=== PATIENT | female | born 1995 | race Caucasian/White ===

== ENCOUNTER 2017-05-24 11:41 | Emergency (ER) | payer OTHER ==
[~2017-05-24] VITALS: Ht 149.9 cm; Wt 52.3 kg
[2017-05-24] MEDS ORDERED: IBUPROFEN 800 MG TABLET PO ONE (12:15)
[2017-05-24] MEDS ORDERED: DEXAMETHASONE SOD PHOS 4 MG/ML 5 ML VIAL IM ONE (12:15)
[2017-05-24] MEDS ORDERED: PENICILLIN G BENZATHINE LA 1,200,000 UNITS/2 ML SYRINGE IM ONE (13:15)
[2017-05-24 14:23] VITALS: BP 105/60
== END 2017-05-24 14:29 | disposition home or self-care (01) ==
LOC: EMS 11:42
DX: J02.8 Acute pharyngitis due to other specified organisms (principal); B96.89 Other specified bacterial agents as the cause of diseases classified elsewhere
CPT/HCPCS: 87430; 96372; 99284; J0561; J1100

== ENCOUNTER 2018-12-05 19:15 | Emergency (ER) | payer OTHER ==
[~2018-12-05] VITALS: Ht 152.4 cm; Wt 52.3 kg
[2018-12-05] MEDS ORDERED: IBUPROFEN 800 MG TABLET PO ONE (21:00)
[2018-12-05 21:23] LABS: INFLUENZA TYPE A POSITIVE FOR TYPE A (NEGATIVE); INFLUENZA TYPE B NEGATIVE FOR TYPE B (NEGATIVE)
[2018-12-05 21:28] VITALS: BP 84/50
== END 2018-12-05 21:43 | disposition home or self-care (01) ==
LOC: EMS 19:16
DX: J11.1 Influenza due to unidentified influenza virus with other respiratory manifestations (principal); M79.10 Myalgia, unspecified site
CPT/HCPCS: 87804

== ENCOUNTER 2019-12-04 02:34 | Emergency (ER) | payer OTHER ==
[~2019-12-04] VITALS: Ht 152.4 cm; Wt 52.3 kg
[2019-12-04 03:15] VITALS: BP 126/71
== END 2019-12-04 04:19 | disposition home or self-care (01) ==
LOC: EMS 02:34
DX: J06.9 Acute upper respiratory infection, unspecified (principal)

== ENCOUNTER 2020-08-06 13:39 | Emergency (ER) | payer OTHER ==
[~2020-08-06] VITALS: Ht 152.4 cm; Wt 53.2 kg
[2020-08-06] MEDS ORDERED: IBUP200C5 PO (13:51)
[2020-08-06] MEDS ORDERED: SODIUM CHLORIDE 0.9% 1,000 ML IV ONE (15:45)
[2020-08-06] MEDS ORDERED: DiphenhydrAMINE HCL 50 MG/ML VIAL IVP ONE (15:45)
[2020-08-06] MEDS ORDERED: KETOROLAC TROMETHAMINE 30 MG/ML VIAL IVP ONE (17:15)
[2020-08-06] MEDS ORDERED: METOCLOPRAMIDE HCL 5 MG/ML 2 ML VIAL IVP ONE (17:15)
[2020-08-06 18:48] VITALS: BP 125/76
== END 2020-08-06 18:54 | disposition home or self-care (01) ==
LOC: EMS 14:08
DX: R51.9 Headache, unspecified (principal); H53.149 Visual discomfort, unspecified; Z79.899 Other long term (current) drug therapy
CPT/HCPCS: 36415; 84702; 96361; 96374; 96375; 99284; J1200; J1885; J2765; J7030

== ENCOUNTER 2021-04-27 12:47 | Emergency (ER) | payer OTHER ==
[~2021-04-27] VITALS: Ht 152.4 cm; Wt 52.3 kg
[~2021-04-27 12:47] MED LIST: IBUP200C5 PO
[2021-04-27 13:03] VITALS: BP 99/55
== END 2021-04-27 14:35 | disposition home or self-care (01) ==
LOC: EMS 12:48
DX: U07.1 COVID-19 (principal)
CPT/HCPCS: 99283; U0003

== ENCOUNTER 2022-04-02 10:36 | Emergency (ER) | payer OTHER ==
[~2022-04-02] VITALS: Ht 149.9 cm; Wt 54.5 kg
[2022-04-02 12:00] LABS: BASOPHILS % (AUTO) 0.9 % (0.0-2.0); EOSINOPHILS % (AUTO) 1.5 % (1.0-6.0); HEMATOCRIT 30.9 % (36-46); HEMOGLOBIN 9.8 g/dL (12.0-16.0); LYMPHOCYTES # (AUTO) 1.6 K/uL (1.0-4.8); MEAN CORPUSCULAR HGB CONC 31.6 G/dL (31.0-37.0); MEAN CORPUSCULAR VOLUME 73 fL (80-100); MONOCYTES # (AUTO) 0.4 K/uL (0.1-1.0); MONOCYTES % (AUTO) 8.2 % (2.0-9.0); NEUTROPHILS # (AUTO) 2.8 K/uL (1.8-7.7); NEUTROPHILS % (AUTO) 57.4 % (40.0-70.0); PLATELET COUNT (AUTO) 218 K/uL (150-450); RED BLOOD CELL COUNT(AUTO) 4.24 MIL/uL (4.00-5.20); RED CELL DISTRIBUTION WIDTH 18.2 % (11.5-14.5)
[2022-04-02 12:12] LABS: ANION GAP 7 mmol/L (8-16); CALCIUM, TOTAL 9.5 mg/dL (8.8-10.5); CARBON DIOXIDE 27 mmol/L (22-29); CHLORIDE 105 mmol/L (98-107); CREATININE 0.67 mg/dL (0.60-1.30); GLOMERULAR FILTR. RATE CALC > 60 mL/min (>60); GLUCOSE,RANDOM 97 mg/dL (70-110); POTASSIUM 3.6 mmol/L (3.5-5.1); SODIUM SERUM 139 mmol/L (136-145); UREA NITROGEN, BLOOD 9 mg/dL (7-18)
[2022-04-02 12:26] LABS: ALANINE AMINOTRANSFERASE 25 U/L (12-78); ALBUMIN 3.7 g/dL (3.4-5.0); ALKALINE PHOSPHATASE 58 U/L (46-116); ASPARTATE AMINOTRANSFERASE 22 U/L (15-37); BILIRUBIN,TOTAL 0.5 mg/dL (0.1-1.0); TOTAL PROTEIN, SERUM 7.4 g/dL (6.4-8.2)
[2022-04-02 15:13] LABS: APPEARANCE,URINE CLEAR (CLEAR); BILIRUBIN,URINE NEGATIVE (NEGATIVE); GLUCOSE, URINE (UA) NEGATIVE (NEGATIVE); KETONES,URINE NEGATIVE (NEGATIVE); LEUKOCYTE ESTERASE ,URINE NEGATIVE (NEGATIVE); NITRATE,URINE NEGATIVE (NEGATIVE); OCCULT BLOOD,URINE NEGATIVE (NEGATIVE); PROTEIN,URINE NEGATIVE (NEGATIVE); SPECIFIC GRAVITIY, URINE 1.007 (1.003-1.030); UROBILINOGEN,URINE <=1.0 mg/dL (<=1.0)
[2022-04-02 15:35] LABS: BACTERIA,URINE Rare /HPF (None Seen); RBC,URINE 0-2 /HPF (0-2); SQUAMOUS EPITHELIAL CELL,UR Few /LPF (None Seen); WBC,URINE 0-2 /HPF (0-5)
[2022-04-02 15:54] VITALS: BP 126/82
[2022-04-02] MEDS ORDERED: METR500 PO (17:45)
== END 2022-04-02 18:23 | disposition home or self-care (01) ==
LOC: EMS 10:37
DX: N76.0 Acute vaginitis (principal)
CPT/HCPCS: 80053; 81001; 84703; 85025; 87210; 99283

== ENCOUNTER 2022-08-18 16:16 | Emergency (ER) | payer OTHER ==
[~2022-08-18] VITALS: Ht 152.4 cm; Wt 54.5 kg
[~2022-08-18 16:16] MED LIST changes: -IBUP200C5 PO; +METR500 PO
[2022-08-18 16:58] VITALS: BP 104/69
[2022-08-18 20:00] LABS: APPEARANCE,URINE TURBID (CLEAR); BILIRUBIN,URINE NEGATIVE (NEGATIVE); GLUCOSE, URINE (UA) NEGATIVE (NEGATIVE); KETONES,URINE NEGATIVE (NEGATIVE); LEUKOCYTE ESTERASE ,URINE NEGATIVE (NEGATIVE); NITRATE,URINE NEGATIVE (NEGATIVE); OCCULT BLOOD,URINE NEGATIVE (NEGATIVE); PROTEIN,URINE NEGATIVE (NEGATIVE); SPECIFIC GRAVITIY, URINE 1.016 (1.003-1.030); UROBILINOGEN,URINE <=1.0 mg/dL (<=1.0)
[2022-08-18 20:04] LABS: AMORPHOUS SEDIMENT,UR Many /LPF (None Seen); BACTERIA,URINE None Seen /HPF (None Seen); RBC,URINE None Seen /HPF (0-2); SQUAMOUS EPITHELIAL CELL,UR Few /LPF (None Seen); WBC,URINE 0-2 /HPF (0-5)
[2022-08-18] MEDS ORDERED: LIDOCAINE/PF 1% 2 ML VIAL IM ONE (20:15)
[2022-08-18] MEDS ORDERED: CefTRIAXone SODIUM 1 GM/VIAL IM ONE (20:15)
[2022-08-18] MEDS ORDERED: DOXYCYCLINE HYCLATE 100 MG TABLET PO ONE (20:15)
[2022-08-18] MEDS ORDERED: METR500 PO (20:35)
[2022-08-18] MEDS ORDERED: DOXY-354 PO (20:36)
== END 2022-08-18 21:58 | disposition home or self-care (01) ==
LOC: EMS 16:18
DX: N76.0 Acute vaginitis (principal); A59.09 Other urogenital trichomoniasis; Z90.49 Acquired absence of other specified parts of digestive tract
CPT/HCPCS: 99283; 81001; 87210; 87491; 87591; 81025; 96372; J0696; J3490

== ENCOUNTER 2024-04-15 17:19 | Emergency (ER) | payer OTHER ==
[~2024-04-15] VITALS: Ht 152.4 cm; Wt 48.6 kg
[~2024-04-15 17:19] MED LIST changes: +DOXY-354 PO
[2024-04-15 17:26] VITALS: TEMP 98.2
[2024-04-15 17:52] LABS: APPEARANCE,URINE CLEAR (CLEAR); BILIRUBIN,URINE NEGATIVE (NEGATIVE); COLOR,URINE LIGHT YELLOW (YELLOW); GLUCOSE, URINE (UA) NEGATIVE (NEGATIVE); KETONES,URINE NEGATIVE (NEGATIVE); LEUKOCYTE ESTERASE ,URINE NEGATIVE (NEGATIVE); NITRATE,URINE NEGATIVE (NEGATIVE); OCCULT BLOOD,URINE NEGATIVE (NEGATIVE); PROTEIN,URINE NEGATIVE (NEGATIVE); SPECIFIC GRAVITIY, URINE 1.013 (1.003-1.030); UROBILINOGEN,URINE <=1.0 mg/dL (<=1.0)
[2024-04-15 18:18] LABS: RBC,URINE None Seen /HPF (0-2)
[2024-04-15 18:19] LABS: BACTERIA,URINE None Seen /HPF (None Seen); SQUAMOUS EPITHELIAL CELL,UR Few /LPF (None Seen); WBC,URINE 0-2 /HPF (0-5)
[2024-04-15] MEDS ORDERED: METR-172 PO (23:23)
[2024-04-15] MEDS: MetroNIDAZOLE 250 MG TABLET PO ONE (23:36)
[2024-04-15 23:43] VITALS: BP 114/73; PULSE 84; RESP 16
== END 2024-04-16 00:35 | disposition home or self-care (01) ==
LOC: EMS 17:19
DX: N76.0 Acute vaginitis (principal); Z90.49 Acquired absence of other specified parts of digestive tract
CPT/HCPCS: 81001; 84703; 87210; 87491; 87591; 99283; 99284

== ENCOUNTER 2024-08-17 17:27 | Emergency (ER) | payer OTHER ==
[~2024-08-17] VITALS: Ht 152.4 cm; Wt 59.1 kg
[~2024-08-17 17:27] MED LIST changes: +METR-172 PO
[2024-08-17 17:28] VITALS: BP 109/70; PULSE 78; RESP 18; TEMP 98.2; O2SAT 99
[2024-08-17] MEDS: KETOROLAC TROMETHAMINE 30 MG/ML VIAL IM ONE (18:20)
[2024-08-17] MEDS ORDERED: IBUP-1492 PO (19:15)
== END 2024-08-17 19:33 | disposition home or self-care (01) ==
LOC: EMS 17:27
DX: S06.0XAA Concussion with loss of consciousness status unknown, initial encounter (principal); Z90.49 Acquired absence of other specified parts of digestive tract; W20.8XXA Other cause of strike by thrown, projected or falling object, initial encounter; Y93.89 Activity, other specified; Y92.89 Other specified places as the place of occurrence of the external cause; Y99.0 Civilian activity done for income or pay
CPT/HCPCS: 99283; 96372; J1885

== ENCOUNTER 2024-09-10 15:36 | Emergency (ER) | payer OTHER ==
[~2024-09-10] VITALS: Ht 152.4 cm; Wt 48.2 kg
[~2024-09-10 15:36] MED LIST changes: +IBUP-1492 PO
[2024-09-10 15:51] VITALS: TEMP 98.7
[2024-09-10 16:29] LABS: APPEARANCE,URINE TURBID (CLEAR); BILIRUBIN,URINE NEGATIVE (NEGATIVE); COLOR,URINE YELLOW (YELLOW); GLUCOSE, URINE (UA) NEGATIVE (NEGATIVE); KETONES,URINE NEGATIVE (NEGATIVE); LEUKOCYTE ESTERASE ,URINE LARGE (NEGATIVE); NITRATE,URINE NEGATIVE (NEGATIVE); OCCULT BLOOD,URINE SMALL (NEGATIVE); PH,URINE 5.5 (5.0-8.0); PROTEIN,URINE 30-70 mg/dL (NEGATIVE); SPECIFIC GRAVITIY, URINE 1.021 (1.003-1.030); UROBILINOGEN,URINE <=1.0 mg/dL (<=1.0)
[2024-09-10 16:55] LABS: WBC,URINE 51-100 /HPF (0-5)
[2024-09-10 16:56] LABS: BACTERIA,URINE Few /HPF (None Seen); SQUAMOUS EPITHELIAL CELL,UR Few /LPF (None Seen)
[2024-09-10 17:24] VITALS: BP 116/72; PULSE 92; RESP 16; O2SAT 99
[2024-09-10] MEDS ORDERED: METR500 PO (17:35)
== END 2024-09-10 18:12 | disposition home or self-care (01) ==
LOC: EMS 15:36
DX: B37.9 Candidiasis, unspecified (principal); N76.0 Acute vaginitis; B96.89 Other specified bacterial agents as the cause of diseases classified elsewhere; Z90.49 Acquired absence of other specified parts of digestive tract
CPT/HCPCS: 81001; 84703; 87086; 87210; 87491; 87591; 99283

== ENCOUNTER 2024-10-25 05:11 | Emergency (ER) | payer OTHER ==
[~2024-10-25] VITALS: Ht 152.4 cm; Wt 48.2 kg
[2024-10-25 05:21] VITALS: TEMP 98.4
[2024-10-25] MEDS: SODIUM CHLORIDE 0.9% 1,000 ML IV ONE (05:58)
[2024-10-25 06:01] LABS: BASOPHILS % (AUTO) 0.7 % (0.0-2.0); EOSINOPHILS % (AUTO) 2.5 % (1.0-6.0); HEMATOCRIT 32.1 % (36-46); HEMOGLOBIN 10.6 g/dL (12.0-16.0); LYMPHOCYTES # (AUTO) 1.9 K/uL (1.0-4.8); MEAN CORPUSCULAR HEMOGLOBIN 27.3 pg (26.0-34.0); MEAN CORPUSCULAR HGB CONC 33.1 G/dL (31.0-37.0); MEAN CORPUSCULAR VOLUME 82 fL (80-100); MONOCYTES # (AUTO) 0.4 K/uL (0.1-1.0); MONOCYTES % (AUTO) 8.9 % (2.0-9.0); NEUTROPHILS # (AUTO) 2.5 K/uL (1.8-7.7); NEUTROPHILS % (AUTO) 49.9 % (40.0-70.0); PLATELET COUNT (AUTO) 216 K/uL (150-450); RED BLOOD CELL COUNT(AUTO) 3.89 MIL/uL (4.00-5.20); RED CELL DISTRIBUTION WIDTH 17.1 % (11.5-14.5)
[2024-10-25 06:40] LABS: ANION GAP 8 mmol/L (8-16); CALCIUM, TOTAL 8.6 mg/dL (8.8-10.5); CARBON DIOXIDE 28 mmol/L (22-29); CHLORIDE 108 mmol/L (98-107); CREATININE 0.69 mg/dL (0.60-1.30); GLOMERULAR FILTR. RATE CALC > 60 mL/min (>60); GLUCOSE,RANDOM 96 mg/dL (70-110); POTASSIUM 3.3 mmol/L (3.5-5.1); SODIUM SERUM 144 mmol/L (136-145); UREA NITROGEN, BLOOD 12 mg/dL (7-18)
[2024-10-25 07:20] VITALS: BP 106/61; PULSE 81; RESP 18; O2SAT 99
[2024-10-25] MEDS: KETOROLAC TROMETHAMINE 30 MG/ML VIAL IVP ONE (07:37)
== END 2024-10-25 08:20 | disposition home or self-care (01) ==
LOC: EMS 05:33
DX: N92.1 Excessive and frequent menstruation with irregular cycle (principal); Z90.49 Acquired absence of other specified parts of digestive tract
CPT/HCPCS: 99285; 96374; 76856; 96361; 80048; 84702; 85025; 36415; J1885; J7030